=== PATIENT | male | born 1980 | race Caucasian/White ===

== ENCOUNTER 2017-11-14 11:20 | Emergency (ER) | payer OTHER ==
[~2017-11-14] VITALS: Ht 162.6 cm; Wt 56.7 kg
[~2017-11-14 11:20] MED LIST: ABILIFY 5 MG TAB5 MG PO; ADVAIR HFA 1112 UNIT INH; ALBUTEROL INHAL17 GM IH; AMOXICILLIN 50500 M1; AMOXICILLIN875 MG PO; ANAPROX DS550 MG PO; BACTRIM DS TAB1 EACH PO; BENTYL 20 MG TA20 M1 PO; BENTYL20 MG PO; CELEXA 10 MG TA10 M1 PO; CIPROFLOXACIN500 M1 PO; CLONAZEPAM; DOXYCYCLINE 10100 MG PO; FLAGYL500 MG PO; IBUPROFEN 800800 MG PO; KEFLEX500 MG PO; NORCO 5-325 TA1 EACH PO; PREDNISONE50 MG PO; PROAIR HFA8.5 GM IH; TEGRETOL XR200 MG PO; TEGRETOL XR400 MG; ZOCOR 10 MG TAB10 MG PO; ZOFRAN4 MG PO; ZOLOFT100 MG
[2017-11-14] MEDS ORDERED: IBUPROFEN 800800 M1 PO (11:34)
[2017-11-14] MEDS ORDERED: SERTRALINE HCL50 MG PO (11:34)
[2017-11-14] MEDS ORDERED: TYLENOL EXTRA500 MG PO (11:34)
[2017-11-14] MEDS ORDERED: MEDROLDOSEPACK PO (11:50)
[2017-11-14 12:41] VITALS: BP 138/88
== END 2017-11-14 12:00 | disposition home or self-care (01) ==
LOC: M.ERS 11:20
DX: M77.11 Lateral epicondylitis, right elbow (principal); F32.9 Major depressive disorder, single episode, unspecified; F17.200 Nicotine dependence, unspecified, uncomplicated; Z88.1 Allergy status to other antibiotic agents